=== PATIENT | female | born 1995 | race Caucasian/White ===

== ENCOUNTER 2016-07-12 20:13 | Emergency (ER) | payer BC ==
[2016-07-12 20:38] VITALS: BP 120/80
[2016-07-12] MEDS ORDERED: Ibuprofen TAB* 600 MG PO ONE (20:48)
--- NOTE | 2016-07-12 21:02 | UC ---
Throat Pain/Nasal Brandt HPI - HPI Summary HPI Summary: SUDDEN ONSET OF SORE THROAT, GASPAR AND FEVER THIS MORNING. EXTREME PAIN WITH SWALLOWING. NO COUGH OR CONGESTION. HAS NAUSEA AND DIFFUSE BODY ACHES. DID GET A FLU SHOT THIS SEASON. - History of Current Complaint Chief Complaint: UC Stated Complaint: SORE THROAT Time Seen by Provider: 07/12/16 20:46 Hx Obtained From: Patient Hx Last Menstrual Period: June 20 Onset/Duration: Sudden Onset, Lasting Hours, Still Present Severity: Moderate Pain Intensity: 8 Pain Scale Used: 0-10 Numeric Cough: None Associated Signs & Symptoms: Positive: Fever - Allergies/Home Medications Allergies/Adverse Reactions: Allergies Allergy/AdvReac Type Severity Reaction Status Date / Time No Known Allergies Allergy Verified 07/12/16 20:38 Home Medications: Home Medications Ascorbic Acid [Vitamin C] 100 mg PO 07/12/16 [History] B-Complex Vitamins [Vitamin B Complex] 07/12/16 [History] Norethin Acet & Estrad-Fe [Minastrin 24 Fe 1-20 mg-Mcg(24)] 07/12/16 [History] PMH/Surg Hx/FS Hx/Imm Hx Previously Healthy: Yes - Surgical History Surgical History: Yes Surgery Procedure, Year, and Place: jaw surgery 3 years ago - Family History Known Family History: Positive: Hypertension - Social History Alcohol Use: Weekly Substance Use Type: None Smoking Status (MU): Never Smoked Tobacco Review of Systems Constitutional: Fever, Chills, Fatigue ENT: Sore Throat Respiratory: Negative Cardiovascular: Negative Musculoskeletal: Myalgia Neurological: Headache All Other Systems Reviewed And Are Negative: Yes Physical Exam Triage Information Reviewed: Yes Appearance: Well-Nourished, Pain Distress - MODERATE Vital Signs: Initial Vital Signs Temp 102.6 F 07/12/16 20:30 Pulse 112 07/12/16 20:30 Resp 22 07/12/16 20:30 BP 120/80 07/12/16 20:30 Pulse Ox 100 07/12/16 20:30 Vital Signs Reviewed: Yes Eyes: Positive: Conjunctiva Clear ENT: Positive: Hearing grossly normal, Pharyngeal erythema, TMs normal. Negative: Tonsillar swelling, Tonsillar exudate, Muffled/hoarse voice Neck: Positive: Supple, Tenderness @ - SPFL CERVICAL LAD, Enlarged Nodes @ - SPFL CERVICAL LAD Respiratory Exam: Normal Cardiovascular: Positive: Tachycardia Abdomen Description: Positive: Soft Musculoskeletal: Positive: No Edema, Other: - NO SIGNS OF MENINGISMUS. NEG BRUDZINSKI AND KERNIG Neurological: Positive: Alert Psychological: Positive: Age Appropriate Behavior Skin: Negative: rashes Diagnostics - Laboratory Diagnostic Studies Completed/Ordered: RAPID STREP NEGATIVE. RAPID FLU NEGATIVE Throat Pain/Nasal Course/Dx - Course Course Of Treatment: REPEAT TEMP AFTER 600MG IBUPROFEN 100.4 - Differential Dx/Diagnosis Provider Diagnoses: ACUTE PHARYNGITIS/VIRAL SYNDROME Discharge - Discharge Plan Condition: Stable Disposition: HOME Patient Education Materials: Pharyngitis (ED) [facility] - If Needed Additional Instructions: RAPID STREP AND RAPID FLU BOTH NEGATIVE. BLOOD DRAWN TO EVALUATE YOUR BLOOD COUNT AND MONO TEST. WE WILL CALL YOU WITH ABNORMAL RESULTS. IBUPROFEN MAX DOSE: 600MG (3 TABS) EVERY 6 HRS TYLENOL MAX DOSE: 1000MG (2 EXTRA STRENGTH TABS) EVERY 8 HRS VIRAL SYNDROME: The physician has diagnosed a viral infection. Viruses not only cause "colds," but can cause many different symptoms including generalized aching, fever, headache, cough, diarrhea, nausea, vomiting, and fatigue. The treatment, for the most part, is simply relief of symptoms. This means that antibiotics are usually not given. Rest, fluids, pain medications and, occasionally, medication for the specific symptoms that are most bothersome will be prescribed. Contact the physician if you develop any new or unusual symptoms such as severe headache, stiff neck, high fever, chest pain, productive cough, or shortness of breath. You should be rechecked if you don't see marked improvement within seven to 10 days.
[2016-07-13 11:49] LABS: EBV Response NO
[2016-07-13 11:55] LABS: Comments Flag Yes; Hematocrit 41 % (35-47); Hemoglobin 13.8 g/dl (12.0-16.0); Manual Entry Verification HAN0055; Mean Corpuscular HGB Conc 33 g/dl (31-36); Mean Corpuscular Hemoglobin 30 pg (27-31); Mean Corpuscular Volume 90 fL (80-97); Mean Platelet Volume 8 um3 (7.4-10.4); Red Blood Count 4.61 10^6/ul (4.0-5.4); Red Cell Distribution Width 12 % (10.5-15)
[2016-07-13 11:56] LABS: Add Diff/Slide Review? Slide Review Added
[2016-07-13 11:59] LABS: Mono Internal Control QC Line Present
== END 2016-07-12 22:02 | disposition home or self-care (01) ==
LOC: UCEAST 20:13
DX: B34.9 Viral infection, unspecified (principal); J02.9 Acute pharyngitis, unspecified
CPT/HCPCS: 36415; 85025; 86308; 87502; 87651; 99202; A9270-GY; G0463